=== PATIENT | female | born 1955 | race Caucasian/White ===

== ENCOUNTER 2018-11-30 17:06 | Emergency (ER) | payer MEDICARE, MEDICAID ==
[~2018-11-30] VITALS: Ht 160 cm; Wt 52.0 kg
[2018-11-30 17:38] VITALS: BP 112/81
[2018-11-30] MEDS ORDERED: DIPHENHYDRAMINE 50MG CAPSULE PO ONE (18:30)
== END 2018-11-30 18:30 | disposition home or self-care (01) ==
LOC: ER 17:06
DX: L50.9 Urticaria, unspecified (principal); Z88.3 Allergy status to other anti-infective agents
CPT/HCPCS: 99283; Q0163

== ENCOUNTER 2019-01-22 12:07 | Inpatient (IN) | payer MEDICARE, MEDICAID ==
[~2019-01-22] VITALS: Ht 154.9 cm; Wt 45.4 kg
[2019-01-22 15:04] LABS: BASOPHILS % 0.8 % (0.0-2.0); EOSINOPHILS % 0.7 % (0.0-5.0); HEMATOCRIT. 36.5 % (36.0-48.0); HEMOGLOBIN. 11.9 g/dL (12.0-16.0); LYMPHOCYTES % 25.7 % (20.0-50.0); MEAN CORPUSCULAR HEMOGLOBIN 30.3 pg (28.0-32.0); MEAN CORPUSCULAR VOLUME 92.6 fL (81.0-99.0); MEAN PLATELET VOLUME 8.2 fl (7.4-10.4); MONOCYTES % 7.7 % (2.0-8.0); NEUTROPHILS % 65.1 % (40.0-76.0); PLATELET 180 x1000/uL (130-400); RED BLOOD CELL COUNT 3.94 mill/uL (4.2-5.4)
[2019-01-22 15:10] LABS: CHLORIDE 109 mEq/L (98-107)
[2019-01-22 15:13] LABS: ETHANOL BLOOD < 10 mg/dL
[2019-01-23] MEDS: PERMETHRIN 5% CREAM 60GM TOP ONE ×2 (14:00→14:54)
[2019-01-23 15:23] LABS: BASOPHILS % 0.9 % (0.0-2.0); EOSINOPHILS % 0.5 % (0.0-5.0); HEMATOCRIT. 36.8 % (36.0-48.0); HEMOGLOBIN. 12.2 g/dL (12.0-16.0); LYMPHOCYTES % 22.7 % (20.0-50.0); MEAN CORPUSCULAR HEMOGLOBIN 30.9 pg (28.0-32.0); MEAN CORPUSCULAR VOLUME 93.1 fL (81.0-99.0); MEAN PLATELET VOLUME 8.4 fl (7.4-10.4); NEUTROPHILS % 67.9 % (40.0-76.0); PLATELET 167 x1000/uL (130-400); RED BLOOD CELL COUNT 3.96 mill/uL (4.2-5.4); RED CELL DISTRIBUTION WIDTH 16.1 % (11.6-14.6)
[2019-01-23 15:26] LABS: CHLORIDE 107 mEq/L (98-107)
[2019-01-23 17:33] LABS: CLARITY URINE CLEAR (CLEAR); COLOR URINE YELLOW (YELLOW); KETONES URINE TRACE (NEGATIVE); LEUKOCYTE ESTERASE URINE 2+ (NEGATIVE); NITRITE URINE NEGATIVE (NEGATIVE); OCCULT BLOOD URINE NEGATIVE (NEGATIVE); PROTEIN URINE NEGATIVE (NEGATIVE); SPECIFIC GRAVITY URINE 1.013 (1.005-1.030)
[2019-01-23 17:46] LABS: *AMPHETAMINES SCREEN URINE NEGATIVE (NEGATIVE); *BARBITURATES SCREEN URINE NEGATIVE (NEGATIVE); *BENZODIAZEPINES SCREEN URINE PRESUMTIVE POSITIVE (NEGATIVE); *COCAINE SCREEN URINE NEGATIVE (NEGATIVE)
[2019-01-23 17:47] LABS: CANNABINOID URINE SCREEN NEGATIVE (NEGATIVE); METHADONE URINE SCREEN NEGATIVE (NEGATIVE); OPIATES URINE SCREEN NEGATIVE (NEGATIVE); PHENCYCLIDINE URINE SCREEN NEGATIVE (NEGATIVE)
[2019-01-23 23:00] VITALS: BP 134/72
[2019-01-24] MEDS ORDERED: DIAZ2TAB PO (00:41)
[2019-01-24] MEDS ORDERED: GABA-529 MT (00:41)
[2019-01-24] MEDS ORDERED: TERI14TA MT (00:41)
[2019-01-24 04:00] VITALS: BP 131/59
[2019-01-24] MEDS ORDERED: ALPRAZOLAM 0.25 MG TABLET PO SCH (05:30)
[2019-01-24 08:00] VITALS: BP 110/63
[2019-01-24 08:38] LABS: HEMATOCRIT 35.9 % (36.0-48.0); HEMOGLOBIN 12.1 g/dL (12.0-16.0); MEAN CORPUSCULAR VOLUME 91.8 fL (81.0-99.0); PLATELET 170 x1000/uL (130-400); RED BLOOD CELL COUNT 3.91 mill/uL (4.2-5.4); RED CELL DISTRIBUTION WIDTH 15.8 % (11.6-14.6)
[2019-01-24 09:17] LABS: CHLORIDE 109 mEq/L (98-107)
[2019-01-24 12:00] VITALS: BP 108/47
[2019-01-24 16:00] VITALS: BP 112/50
[2019-01-24] MEDS ORDERED: PERMETHRIN 5% CREAM 60GM TOP NR (18:30)
[2019-01-24 20:00] VITALS: BP 138/69
[2019-01-25 00:20] VITALS: BP 130/61
[2019-01-25] MEDS: ONDANSETRON HCL 4MG/2ML INJ IV PRN ×3 (01:26→17:56)
[2019-01-25 04:00] VITALS: BP 135/73
[2019-01-25 07:57] VITALS: BP 125/87
[2019-01-25] MEDS ORDERED: ONDANSETRON HCL 4MG/2ML INJ IV PRN (09:15)
[2019-01-25] MEDS: ALPRAZOLAM 0.5 MG TABLET PO PRN ×2 (09:22→17:56)
[2019-01-25] MEDS ORDERED: NON FORMULARY PATIENT HOME MED XX SCH (10:30)
[2019-01-25 11:45] VITALS: BP 150/61
[2019-01-25] MEDS: GABAPENTIN 100MG CAPSULE PO SCH ×2 (14:16→21:46)
[2019-01-25 15:50] VITALS: BP 121/76
[2019-01-25] MEDS ORDERED: CARI350T27 PO (16:31)
[2019-01-25 20:00] VITALS: BP 163/50
[2019-01-26] VITALS: BP 144/80
[2019-01-26 04:00] VITALS: BP 146/76
[2019-01-26] MEDS ORDERED: DIPHENHYDRAMINE 50MG/ML VIAL IV SCH (04:45)
[2019-01-26] MEDS: ALPRAZOLAM 0.5 MG TABLET PO PRN ×3 (04:50→20:39)
[2019-01-26] MEDS: GABAPENTIN 100MG CAPSULE PO SCH ×3 (06:21→20:39)
[2019-01-26 08:00] VITALS: BP 140/70
[2019-01-26] MEDS ORDERED: NON FORMULARY PATIENT HOME MED XX SCH ×2 (11:15→16:15)
[2019-01-26 12:00] VITALS: BP 136/70
[2019-01-26] MEDS ORDERED: CEPHALEXIN 250 MG/5 ML 100ML PO SCH (12:00)
[2019-01-26] MEDS: PYRIDOXINE HCL 50MG TABLET PO SCH (12:53)
[2019-01-26] MEDS: CEPHALEXIN 250MG CAPSULE PO SCH ×2 (12:54→20:39)
[2019-01-26] MEDS: LINAGLIPTIN 5MG TABLET PO SCH (12:54)
[2019-01-26] MEDS: PREDNISONE 5MG TABLET PO SCH (12:54)
[2019-01-26] MEDS: CARISOPRODOL 350 MG TABLET PO PRN ×2 (13:15→20:39)
[2019-01-26] MEDS ORDERED: DIPHENOXYLATE/ATROPINE 2.5/0.025MG TABLET PO PRN (14:00)
[2019-01-26] MEDS ORDERED: PROM25TA13 MT (15:09)
[2019-01-26] MEDS ORDERED: OXYB5TAB11 MT (15:11)
[2019-01-26] MEDS ORDERED: SIMV20TA6 MT (15:12)
[2019-01-26] MEDS ORDERED: PARO-41 MT (15:12)
[2019-01-26] MEDS ORDERED: MEDR2.5T7 PO (15:13)
[2019-01-26] MEDS ORDERED: MEGE20TA2 PO (15:20)
[2019-01-26] MEDS ORDERED: ESTR0.5T PO (15:20)
[2019-01-26] MEDS ORDERED: TIZA4TAB4 MT (15:21)
[2019-01-26] MEDS ORDERED: TRAZ-213 MT (15:21)
[2019-01-26 16:00] VITALS: BP 118/73
[2019-01-26] MEDS ORDERED: MEDICATION NOT ON FORMULARY EA (Paroxetine Hcl 1 TAB) MT SCH (16:15)
[2019-01-26] MEDS ORDERED: MEDICATION NOT ON FORMULARY EA (Simvastatin 1 TAB) MT SCH (16:15)
[2019-01-26] MEDS ORDERED: OXYBUTYNIN CHLORIDE MT SCH (16:15)
[2019-01-26] MEDS ORDERED: ESTRADIOL MT SCH (16:15)
[2019-01-26] MEDS ORDERED: MEDICATION NOT ON FORMULARY EA (Tizanidine Hcl 1 TAB) MT SCH (17:00)
[2019-01-26] MEDS: PAROXETINE HCL 10MG TABLET PO SCH (17:20)
[2019-01-26] MEDS: TIZANIDINE HCL 2MG TABLET PO SCH (17:20)
[2019-01-26] MEDS ORDERED: IVER3TAB2 PO (17:46)
[2019-01-26 20:00] VITALS: BP 115/63
[2019-01-26] MEDS: ATORVASTATIN CALCIUM 10MG TABLET PO SCH (20:38)
[2019-01-26] MEDS: OXYBUTYNIN CHLORIDE 5MG TABLET PO SCH (20:39)
[2019-01-26] MEDS: MEDROXYPROGESTERONE ACET 2.5MG TABLET PO SCH (20:56)
[2019-01-26] MEDS: PROMETHAZINE HCL 25MG TABLET PO PRN (20:56)
[2019-01-26] MEDS: MEGESTROL ACETATE 20MG TABLET PO SCH (20:57)
[2019-01-26] MEDS: ESTRADIOL 0.5 MG TABLET PO SCH (20:57)
[2019-01-27 01:37] VITALS: BP 115/63
[2019-01-27] MEDS: CEPHALEXIN 250MG CAPSULE PO SCH ×4 (01:38→21:05)
[2019-01-27] MEDS: CARISOPRODOL 350 MG TABLET PO PRN ×2 (01:38→14:22)
[2019-01-27] MEDS ORDERED: DIPHENHYDRAMINE 50MG/ML VIAL IV SCH (01:45)
[2019-01-27 04:40] VITALS: BP 146/64
[2019-01-27] MEDS: PROMETHAZINE HCL 25MG TABLET PO PRN ×2 (05:03→16:15)
[2019-01-27] MEDS: ALPRAZOLAM 0.5 MG TABLET PO PRN ×2 (05:03→21:06)
[2019-01-27] MEDS: GABAPENTIN 100MG CAPSULE PO SCH ×3 (05:03→21:05)
[2019-01-27 08:00] VITALS: BP 137/65
[2019-01-27] MEDS: ESTRADIOL 0.5 MG TABLET PO SCH (08:50)
[2019-01-27] MEDS: MEGESTROL ACETATE 20MG TABLET PO SCH (08:52)
[2019-01-27] MEDS: PAROXETINE HCL 10MG TABLET PO SCH (08:52)
[2019-01-27] MEDS: TIZANIDINE HCL 2MG TABLET PO SCH ×2 (08:52→16:15)
[2019-01-27] MEDS: MEDROXYPROGESTERONE ACET 2.5MG TABLET PO SCH (08:52)
[2019-01-27] MEDS: LINAGLIPTIN 5MG TABLET PO SCH (08:53)
[2019-01-27] MEDS: PREDNISONE 5MG TABLET PO SCH (08:54)
[2019-01-27] MEDS: PYRIDOXINE HCL 50MG TABLET PO SCH (08:54)
[2019-01-27 12:00] VITALS: BP 130/70
[2019-01-27 16:00] VITALS: BP 103/61
[2019-01-27 20:35] VITALS: BP 127/63
[2019-01-27] MEDS: OXYBUTYNIN CHLORIDE 5MG TABLET PO SCH (21:05)
[2019-01-27] MEDS: ATORVASTATIN CALCIUM 10MG TABLET PO SCH (21:05)
[2019-01-28 00:15] VITALS: BP 153/82
[2019-01-28] MEDS: CEPHALEXIN 250MG CAPSULE PO SCH ×3 (02:06→13:35)
[2019-01-28] MEDS: CARISOPRODOL 350 MG TABLET PO PRN ×3 (02:07→14:10)
[2019-01-28 04:00] VITALS: BP 131/72
[2019-01-28] MEDS: GABAPENTIN 100MG CAPSULE PO SCH ×2 (06:01→13:35)
[2019-01-28 08:39] VITALS: BP 136/72
[2019-01-28] MEDS: ESTRADIOL 0.5 MG TABLET PO SCH (08:52)
[2019-01-28] MEDS: LINAGLIPTIN 5MG TABLET PO SCH (08:52)
[2019-01-28] MEDS: ALPRAZOLAM 0.5 MG TABLET PO PRN ×2 (08:52→16:14)
[2019-01-28] MEDS: PAROXETINE HCL 10MG TABLET PO SCH (08:53)
[2019-01-28] MEDS: TIZANIDINE HCL 2MG TABLET PO SCH ×2 (08:53→16:14)
[2019-01-28] MEDS: MEDROXYPROGESTERONE ACET 2.5MG TABLET PO SCH (08:53)
[2019-01-28] MEDS: PREDNISONE 5MG TABLET PO SCH (08:53)
[2019-01-28] MEDS: PYRIDOXINE HCL 50MG TABLET PO SCH (08:53)
[2019-01-28] MEDS: MEGESTROL ACETATE 20MG TABLET PO SCH (09:02)
[2019-01-28] MEDS: PROMETHAZINE HCL 25MG TABLET PO PRN (10:47)
[2019-01-28 11:45] VITALS: BP 113/67
[2019-01-28 15:56] VITALS: BP 137/76
[2019-01-28 16:07] VITALS: BP 137/76
== END 2019-01-28 17:10 | disposition home or self-care (01) | DRG 59 ==
LOC: ER 12:07 → 8WST 01-23 16:05 → EDBEDREQ 01-23 17:42 → ENRESERV 01-23 20:20 → 8WST 01-23 22:48
PROVIDERS: ADMIT Family Medicine; ATTEND Family Medicine
DX: G35 Multiple sclerosis (principal); R45.851 Suicidal ideations; F41.9 Anxiety disorder, unspecified; M41.9 Scoliosis, unspecified; M54.30 Sciatica, unspecified side; F19.90 Other psychoactive substance use, unspecified, uncomplicated; B86 Scabies; Z91.5 Personal history of self-harm; Z99.3 Dependence on wheelchair; Z88.6 Allergy status to analgesic agent
CPT/HCPCS: 36415; 71045; 80048; 80305; 80307; 80320; 80329; 83880; 84484; 85027; 93005; 99284; J1200; J2405; J7512; Q0169; G0480

== ENCOUNTER 2019-01-31 19:04 | Emergency (ER) | payer MEDICARE, MEDICAID ==
[~2019-01-31] VITALS: Ht 162.6 cm; Wt 60.0 kg
[~2019-01-31 19:04] MED LIST: CARI350T27 PO; DIAZ2TAB PO; ESTR0.5T PO; GABA-529 MT; IVER3TAB2 PO; MEDR2.5T7 PO; MEGE20TA2 PO; OXYB5TAB11 MT; PARO-41 MT; PROM25TA13 MT; SIMV20TA6 MT; TERI14TA MT; TIZA4TAB4 MT; TRAZ-213 MT
[2019-01-31] MEDS ORDERED: SODIUM CHLORIDE 0.9% 1,000 ML IV ONE ×2 (19:33→21:15)
[2019-01-31 19:56] LABS: BASOPHILS % 0.5 % (0.0-2.0); EOSINOPHILS % 0.9 % (0.0-5.0); HEMATOCRIT. 35.5 % (36.0-48.0); HEMOGLOBIN. 11.6 g/dL (12.0-16.0); LYMPHOCYTES % 26.5 % (20.0-50.0); MEAN CORPUSCULAR HEMOGLOBIN 30.4 pg (28.0-32.0); MEAN CORPUSCULAR VOLUME 93.3 fL (81.0-99.0); MEAN PLATELET VOLUME 8.8 fl (7.4-10.4); MONOCYTES % 5.2 % (2.0-8.0); NEUTROPHILS % 66.9 % (40.0-76.0); PLATELET 122 x1000/uL (130-400); RED BLOOD CELL COUNT 3.81 mill/uL (4.2-5.4)
[2019-01-31 19:58] LABS: CHLORIDE 117 mEq/L (98-107)
[2019-01-31 20:03] LABS: ETHANOL BLOOD < 10 mg/dL
[2019-01-31] MEDS ORDERED: POTASSIUM CHLORIDE 20MEQ TABLET SR PO ONE (21:00)
[2019-02-01 06:48] LABS: CLARITY URINE CLOUDY (CLEAR); COLOR URINE YELLOW (YELLOW); KETONES URINE TRACE (NEGATIVE); LEUKOCYTE ESTERASE URINE 2+ (NEGATIVE); NITRITE URINE NEGATIVE (NEGATIVE); OCCULT BLOOD URINE NEGATIVE (NEGATIVE); PH URINE 5.5 (4.5-8.0); PROTEIN URINE NEGATIVE (NEGATIVE); SPECIFIC GRAVITY URINE 1.029 (1.005-1.030); UROBILINOGEN URINE 0.2 E.U./dL (0.2-1.0)
[2019-02-01] MEDS ORDERED: POTASSIUM CHLORIDE 20MEQ TABLET SR PO ONE (07:00)
[2019-02-01 07:02] LABS: *AMPHETAMINES SCREEN URINE NEGATIVE (NEGATIVE); *BARBITURATES SCREEN URINE NEGATIVE (NEGATIVE); *BENZODIAZEPINES SCREEN URINE PRESUMTIVE POSITIVE (NEGATIVE); *COCAINE SCREEN URINE NEGATIVE (NEGATIVE)
[2019-02-01 07:03] LABS: CANNABINOID URINE SCREEN NEGATIVE (NEGATIVE); METHADONE URINE SCREEN NEGATIVE (NEGATIVE); OPIATES URINE SCREEN NEGATIVE (NEGATIVE); PHENCYCLIDINE URINE SCREEN NEGATIVE (NEGATIVE)
[2019-02-01 16:41] VITALS: BP 124/79
== END 2019-02-01 17:04 | disposition home or self-care (01) ==
LOC: ER 19:26
DX: T40.4X1A Poisoning by other synthetic narcotics, accidental (unintentional), initial encounter (principal); R53.83 Other fatigue; R53.1 Weakness; R42 Dizziness and giddiness; E87.6 Hypokalemia; Z88.3 Allergy status to other anti-infective agents; Z79.899 Other long term (current) drug therapy; Z86.59 Personal history of other mental and behavioral disorders
CPT/HCPCS: 36415; 80053; 80305; 80307; 80320; 80329; 81003; 85025; 87086; 93005; 96360; 96361; 99284; J7030; G0480